=== PATIENT | female | born 1990 | race African-American/Black ===

== ENCOUNTER 2025-01-21 13:56 | Inpatient (IN) | payer MEDICAID, OTHER ==
--- NOTE | 2025-01-21 14:01 | ED ---
Psych HPI - General Stated Complaint: Suicidal Time Seen by Provider: 01/21/25 13:57 Source: RN notes reviewed, old records reviewed Mode of arrival: EMS Limitations: no limitations - History of Present Illness Initial Comments: This is a 34-year-old female to the ER for evaluation. Patient coming in for psychiatric evaluation. Patient currently transitioning, and psychiatric medication but not taking any psychiatric medication currently. Patient is suicidal not homicidal no drugs or alcohol today MD Complaint: suicidal ideation, feels depressed -: days(s) Associated Psychiatric Symptoms: depression, suicidal ideation History of same: Yes Quality: constant, getting worse Improves With: none Worsens With: none Context: not taking psychiatric medications Associated Symptoms: denies other symptoms Treatments Prior to Arrival: placed on mental health hold If Self Harm: admits thoughts of self harm - Related Data Previous Rx's Medication Instructions Recorded ARIPiprazole [Abilify] 15 mg PO DAILY 30 Days #30 tab 01/28/25 Benzocaine/Menthol Lozeng [Cepacol 1 each MUCOUS MEM Q4HR PRN lozenge 01/28/25 lozenge] Folic Acid 1 mg PO DAILY 30 Days #30 tab 01/28/25 Multivitamins, Thera [Multivitamin 1 each PO DAILY 30 Days #30 tab 01/28/25 (formulary)] Nicotine Gum (Polacrilex) 2 mg BUCCAL Q4HR PRN pieceofgum 01/28/25 [Nicorette] Prazosin [Minipress] 1 mg PO HS 30 Days #30 cap 01/28/25 Sertraline [Zoloft] 50 mg PO DAILY 30 Days #30 tab 01/28/25 Thiamine [Vitamin B-1] 100 mg PO DAILY 30 Days #30 tab 01/28/25 traZODone HCL [Desyrel] 50 mg PO HS 30 Days #30 tab 01/28/25 Allergies Allergy/AdvReac Type Severity Reaction Status Date / Time No Known Allergies Allergy Unverified 01/21/25 14:58 Review of Systems ROS Statement: Those systems with pertinent positive or pertinent negative responses have been documented in the HPI. ROS Other: All systems not noted in ROS Statement are negative. General Exam General appearance: alert, in no apparent distress Head exam: Present: atraumatic, normocephalic, normal inspection Eye exam: Present: normal appearance, PERRL, EOMI. Absent: scleral icterus, conjunctival injection, periorbital swelling ENT exam: Present: normal exam, mucous membranes moist Neck exam: Present: normal inspection. Absent: tenderness, meningismus, l ymphadenopathy Respiratory exam: Present: normal lung sounds bilaterally. Absent: respiratory distress, wheezes, rales, rhonchi, stridor Cardiovascular Exam: Present: regular rate, normal rhythm, normal heart sounds. Absent: systolic murmur, diastolic murmur, rubs, gallop, clicks GI/Abdominal exam: Present: soft, normal bowel sounds. Absent: distended, tenderness, guarding, rebound, rigid Extremities exam: Present: normal inspection, full ROM, normal capillary refill. Absent: tenderness, pedal edema, joint swelling, calf tenderness Back exam: Present: normal inspection Neurological exam: Present: alert, oriented X3, CN II-XII intact Psychiatric exam: Present: normal affect, normal mood Skin exam: Present: warm, dry, intact, normal color. Absent: rash Course Vital Signs 01/21/25 13:58 Temperature 98.1 F Pulse Rate 88 Respiratory 18 Rate Blood Pressure 150/85 O2 Sat by Pulse 97 Oximetry - Reevaluation(s) Reevaluation #1: 01/21/25 14:54 Medical records reviewed Reevaluation #2: 01/21/25 14:55 Cleared for psychiatric evaluation Reevaluation #3: Was pt. sent in by a medical professional or institution (, PA, RADIOISOTOPE TECHNOLOGIST, urgent care, hospital, or fci...) When possible be specific @ -no Did you speak to anyone other than the patient for history (EMS, parent, family, police, friend...)? What history was obtained from this source @ -no Did you review nursing and triage notes (agree or disagree)? Why? @ -agree Are old charts reviewed (outside hosp., previous admission, EMS record, old EKG, old radiological studies, urgent care reports/EKG's, fci records)? Report findings @ -yes Differential Diagnosis (chest pain, altered mental status, abdominal pain women, abdominal pain men, vaginal bleeding, weakness, fever, dyspnea, syncope, headache, dizziness, GI bleed, back pain, seizure, CVA, palpatations, mental health, musculoskeletal)? @ -prior EKG interpreted by me (3pts min.). @ -no X-rays interpreted by me (1pt min.). @ -no CT interpreted by me (1pt min.). @ -no U/S interpreted by me (1pt. min.). @ -no What testing was considered but not performed or refused? (CT, X-rays, U/S, labs)? Why? @ -none What meds were considered but not given or refused? Why? @ -none Did you discuss the management of the patient with other professionals (professionals i.e. , PA, RADIOISOTOPE TECHNOLOGIST, lab, RT, psych nurse, social services specialist, trigonometry tutor, teacher, dispatch officer, lead case manager)? Give summary @ -no Was smoking cessation discussed for >3mins.? @ -no Was critical care preformed (if so, how long)? @ -no Were there social determinants of health that impacted care today? How? (Homelessness, low income, unemployed, alcoholism, drug addiction, transportation, low edu. Level, literacy, decrease access to med. care, [place] [facility], rehab)? @ -none Was there de-escalation of care discussed even if they declined (Discuss DNR or withdrawal of care, Hospice)? DNR status @ -no What co-morbidities impacted this encounter? (DM, HTN, Smoking, COPD, CAD, Cancer, CVA, ARF, Chemo, Hep., AIDS, mental health diagnosis, sleep apnea, morbid obesity)? @ -none Was patient admitted / discharged? Hospital course, mention meds given and route, prescriptions, significant lab abnormalities, going to OR and other pertinent info. @ - 34 female will be admitted for psychiatric evaluation and treatment Admitted Undiagnosed new problem with uncertain prognosis? @ -no Drug Therapy requiring intensive monitoring for toxicity (Heparin, Nitro, Insulin, Cardizem)? @ -no Were any procedures done? @ -no Diagnosis/symptom? @ -Depression mental health evaluation Acute, or Chronic, or Acute on Chronic? @ -Acute Uncomplicated (without systemic symptoms) or Complicated (systemic symptoms)? @ -Complicated Side effects of treatment? @ -no Exacerbation, Progression, or Severe Exacerbation? @ -exacerbation Poses a threat to life or bodily function? How? (Chest pain, USA, NE, pneumonia, PE, COPD, DKA, ARF, appy, cholecystitis, CVA, Diverticulitis, Homicidal, Suicidal, threat to staff... and all critical care pts) @ -no Reevaluation #4: Differential Mental Health Depression, anxiety, bipolar, psychosis, schizophrenia, borderline personality, situational depression, adjustment disorder, behavioral disorder, brain tumor, malingering, substance abuse, encephalopathy, medication reaction, dementia, hypothyroidism, degenerative neurologic disorder, lupus.... This is not meant to be all-inclusive list Medical Decision Making - Medical Decision Making 34 female will be admitted for psychiatric evaluation and treatment - Lab Data Result diagrams: 01/24/25 21:35 01/24/25 21:35 Lab Results 01/21/25 Range/Units 18:37 Influenza Type A (PCR) Not Detected (Not Detectd) Influenza Type B (PCR) Not Detected (Not Detectd) RSV (PCR) Not Detected (Not Detectd) SARS-CoV-2 (PCR) Not Detected (Not Detectd) Disposition Clinical Impression: Bipolar disorder with current episode depressed, Alcohol use disorder, Anxiety, Suicidal ideation Disposition: TRANSFER TO PSYCH HOSP/UNIT Condition: Fair Is patient prescribed a controlled substance at d/c from ED?: No
[2025-01-21 19:23] LABS: Influenza A Not Detected (Not Detectd); Influenza B Not Detected (Not Detectd); RSV Not Detected (Not Detectd)
[2025-01-21] MEDS: LORazepam 1 MG TAB PO STA (19:44)
[2025-01-21] MEDS: ACETAMINOPHEN TAB 325 MG TAB PO STA (21:58)
[2025-01-21] MEDS ORDERED: MAG HYDROX/AL HYDROX/SIMETH 355 ML BOTTLE PO PRN (22:10)
[2025-01-21] MEDS ORDERED: HALOPERIDOL LACTATE 5 MG/ML 1 ML VIAL IM PRN (22:10)
[2025-01-21] MEDS ORDERED: LORazepam 2 MG/ML INJ IM PRN (22:10)
[2025-01-21] MEDS: LORazepam 1 MG TAB PO PRN (23:22)
[2025-01-21] MEDS: IBUPROFEN 600 MG TAB PO PRN (23:22)
[2025-01-21] MEDS: haloperidoL 5 MG TAB PO PRN (23:22)
[2025-01-22] MEDS: MULTIVITAMINS, THERA 1 EACH TAB PO SCH (09:26)
[2025-01-22] MEDS: THIAMINE 100 MG TAB PO SCH (09:26)
[2025-01-22] MEDS: NICOTINE 21MG/24HR PATCH TRANSDERM SCH (09:26)
[2025-01-22] MEDS: FOLIC ACID 1 MG TAB PO SCH (09:26)
--- NOTE | 2025-01-22 15:19 | P.HP ---
Psychiatric H&P - . H&P Date: 01/22/25 History & Physical: Allergies Allergy/AdvReac Type Severity Reaction Status Date / Time No Known Allergies Allergy Unverified 01/21/25 14:58 Vital Signs Temp 97.2 F L 01/22/25 11:07 Pulse 100 01/22/25 11:07 Resp 20 01/21/25 23:03 BP 144/97 01/22/25 11:07 Pulse Ox 98 01/22/25 11:07 FiO2 Intake & Output 01/21/25 01/22/25 01/22/25 18:59 06:59 18:59 Weight 99.79 kg 115.575 kg Laboratory Last Values Influenza Type A (PCR) Not Detected (Not Detectd) 01/21/25 18:37 Influenza Type B (PCR) Not Detected (Not Detectd) 01/21/25 18:37 RSV (PCR) Not Detected (Not Detectd) 01/21/25 18:37 SARS-CoV-2 (PCR) Not Detected (Not Detectd) 01/21/25 18:37 01/22/25 15:11 IDENTIFYING DATA: Patient is a 34-year-old individual, living independently, unemployed CHIEF COMPLAINT: SI HPI: Patient presented to the hospital with depression. Per EPS, "Patient was brought in by [facility] related to suicidal ideations with multiple plans. Patient assessed in ER7 from [id number]. Patient refused to answer majority of questions stating "I know there are people in the hallway listening" and "I'm a private person so I cannot discuss that here". Patient verbalizes suicidal ideation with a plan to overdose or crash her car. Patient states that she will find a way because she wants to . Patient irritable during assessment stating "They already asked me all of those questions". Patient states that U already assessed her. Patient denies homicidal ideations. Patient denies auditory or visual hallucinations. Patient verbalizes delusions including feeling like people are calling her humiliating and that she is digusting. Patient verbalizes daily alcohol use including a pint/day with last drink 2 days ago. Patient denies history of withdrawal and denies history of seizures. Patient denies substance use and states she does not smoke." Patient seen and evaluated in their room and was agreeable with speaking to senior technical writer in the room. Patient no tably was sedated, describing several symptoms that appears to be related to withdrawing including feeling dizzy, chills, sweating however UDS has not been completed. Patient verbalizes "delusions" for the past several weeks, great insight into these delusional thoughts described as feeling as though people are following them, humiliating them. Patient was unable to elaborate on any stressors that could have prompted these feelings however does report nonadherence with psychotropic medications. They do report ongoing suicidal ideations with a plan, paranoia however denied any unsafe feelings while in the hospital. Patient denies any homicidal ideations intent or plan. At this time patient denies any auditory or visual hallucinations. Patient denies any flight of ideas racing thoughts and increased in goal directed behavior. Patient admits to using crack cocaine occasionally, nicotine daily, occasional alcohol however previously told EPS worker. Have been drinking a pint per day, denying any cannabis. PAST PSYCHIATRIC HISTORY: Patient has a history of bipolar disorder. Patient denies being on any psychiatric medications. Patient reports 1 previous inpatient hospitalization, last 1 year ago. Patient denies any psychiatric outpatient follow-up. Patient reports 1 previous suicide attempt, remotely. PMH: as per ER note ALLERGIES: as per EMR SUBSTANCE USE HISTORY: As per HPI FAMILY PSYCHIATRIC/SUBSTANCE USE HISTORY: Denies SOCIAL HISTORY: Patient is single and has no children. They claims they live independently, unemployed. MENTAL STATUS EXAM: General Appearance: Patient appears to be stated age is alert, directable, and attempts to cooperate. Patient appears to have poor hygiene and grooming. Behavior: Patient is laying without any agitated behavior. Somnolent Speech: Patient's speech is fluent and nonpressured, brief. Mood/Affect: Patient reports their mood is depressed, affect is congruent and constricted. Suicidality/Homicidality: Patient denies having any homicidal ideation intent or plan. Patient reports suicidal ideations with a plan Perceptions: Patient denies any visual hallucinations and denies any auditory hallucinations Though content/process: There is evidence of paranoid delusions Memory and concentration: AOX3, grossly intact for the purposes of this session. Can spell "WORLD" backwards Judgment and insight: Poor STRENGTHS/WEAKNESSES: strength is that patient is resilient. Weakness is that patient abuses substances, has poor judgment and is impulsive INTELLECT: Average IMPRESSIONS: Bipolar disorder, current episode depressed with psychotic features Rule out substance-induced mood disorder Stimulant use disorder Alcohol use disorder Nicotine dependence PLAN: -Patient is admitted under voluntary status to MHU for stabilization of psychiatric symptoms and safety. Patient has signed adult voluntary form and medication consent and is placed in patient's chart. -Medications : Start Abilify 5 mg at bedtime for bipolar disorder, trazodone 50 mg at bedtime for insomnia -Ativan and Haldol PRN for agitation/aggression -Started thiamine, MVM for etoh use -CIWA protocol with Ativan PRN for ETOH withdrawal. -Patient was counselled on substance abuse and desired to cut back on use-Will offer patient subtance use rehab -Patient was informed of the risks, benefits and side effects of the medication and patient verbally consented to taking the medications. Patient signed med consent form and was placed in chart. -Internal Medicine consult to perform medical evaluation and physical. -NRT -nicotine patch -SW on board for discharge planning. Encourage patient to participate in groups to work on coping skills.
[2025-01-22] MEDS: LORazepam 1 MG TAB PO PRN (18:30)
[2025-01-22] MEDS: NICOTINE GUM (POLACRILEX) 2 MG GUM BUCCAL PRN (20:05)
[2025-01-22] MEDS: guaiFENesin-DM 600/30MG 1 EACH TAB.ER.12H PO PRN (20:17)
[2025-01-22] MEDS: ARIPiprazole 5 MG TAB PO SCH (21:16)
[2025-01-22] MEDS: traZODone HCL 50 MG TAB PO SCH (21:16)
[2025-01-23] MEDS: ACETAMINOPHEN TAB 325 MG TAB PO PRN (04:27)
[2025-01-23] MEDS: BENZOCAINE/MENTHOL LOZENG 1 EACH LOZENGE MUCOUS MEM PRN (10:13)
[2025-01-23] MEDS: SERTRALINE 50 MG TAB PO SCH (10:14)
--- NOTE | 2025-01-23 12:16 | P.PN ---
Progress Note - Text Progress Note Date: 01/23/25 Interval History: Patient was seen wandering the hallways and was directable and agreeable to sp evan with ticket writer in the office. Patient displayed dramatic behavior, requesting to sit on the floor with head between her legs, anxious. Patient expressed waking up "cranky" due to missing breakfast. They report feeling both anxious and angry related to feeling as though the staff does not care about her. She mentions being upset that one of her boyfriends on the unit is being discharged today, stating that there are other boyfriend is still here however. Patient reports sleeping well. She reports suicidal ideations however was able to contract for safety, denying any plan or intent. Patient does report high anxiety, attempted to teach patient breathing coping skills. Patient describes visual hallucinations as shadows. At this time patient denies any homicidal ideations, intent or plan. Patient denies any auditory hallucinations and denies any paranoia or delusions. Patient denies any side effects from the medications and has been compliant with meds. Mental Status Exam: General Appearance: Patient appears to be stated age is alert, directable, and cooperative. Disheveled appearance Behavior: Patient displayed dramatic behavior, plopping themselves on the floor, anxious Speech: Patient's speech is fluent and nonpressured. Mood/Affect: Mood is irritable, affect is congruent and labile. Suicidality/Homicidality: Patient denies having any homicidal ideation intent or plan. She does report suicidal ideations no plan today Perceptions: Patient reports visual hallucinations, denying any auditory hallucinations Though content/process: There is no evidence of any delusional thought content and thought process is linear. Memory and concentration: AOX3, grossly intact for the purposes of this session Judgment and insight: Improving mildly Assessment Bipolar disorder, current episode depressed with psychotic features Rule out substance-induced mood disorder Anxiety, unspecified Stimulant use disorder Alcohol use disorder Nicotine dependence Cluster B traits Plan: -Patient continues to meet criteria for inpatient psychiatric admission for symptom stabilization and safety. Patient has signed adult voluntary form and medication consent and was placed in patient's chart. -Medications: Start Zoloft 50 mg daily for depression/anxiety, increase Abilify to 10 mg at bedtime for bipolar disorder, continue trazodone 50 mg at bedtime for insomnia -When necessary Ativan and Haldol for agitation/aggression. -Labs: Ordered but not completed -NRT -nicotine patch -CIWA protocol with Ativan PRN for ETOH withdrawal. -SW on board for discharge planning. Encouraged the patient to participate in milieu.
[2025-01-23] MEDS: ARIPiprazole 10 MG TAB PO SCH (20:14)
[2025-01-23] MEDS: FLUTICASONE NASAL 50MCG/SPRAY 16GM BTL EA NOSTRIL PRN (20:15)
--- NOTE | 2025-01-24 05:32 | P.MDCNMH ---
History of Present Illness H&P Date: 01/22/25 Patient is a 34-year-old female with history of bipolar disorder who presented for suicidal ideation. Medicine was consulted for medical evaluation. Patient states she has history of HIV diagnosed at age 18. She was previously on HIV therapy and discontinued 1 month ago. She has declined to take any HIV related medication at this time. She is attesting to occasionally fevers and chills during this time. She says she also has cough with some sputum production related to a previous cold, which seems to be improving. She denies chest pain, palpitations, shortness of breath, abdominal pain, nausea, vomiting, dysuria. Patient is afebrile, blood pressure 144/97, pulse 100, O2 saturation 98 % on room air. Viral respiratory panel negative. No imaging to review. Social history: Patient uses alcohol daily, tobacco occasionally, and recreational drugs cocaine and ecstasy Review of systems: Reviewed, pertinent positive negatives as per HPI Gen: In NAD, non-toxic, obese HEENT: normocephalic, atraumatic, hearing acuity is intact, mucous membranes moist CVS: perfusing all extremities well, no pitting edema Respiratory: symmetric chest expansion, no accessory muscle use GI: soft, NTTP, ND : no suprapubic tenderness, no CVA tenderness MSK/Derm: no rashes, cyanosis Neuro: CN II-XII intact, no motor weakness Assessment/plan: # HIV positive Declining treatment, due to mood and SI HIV1 RNA ultra quantitative, and CD4 CD8 flow ordered # Bipolar disorder #Alcohol use disorder -Management per primary psychiatry service Thank you for this consult, please reach out if any further questions/concerns. Past Medical History Past Medical History: Deep Vein Thrombosis (DVT), Pulmonary Embolus (PE) History of Any Multi-Drug Resistant Organisms: None Reported Past Surgical History: Breast Surgery Past Psychological History: Anxiety, Bipolar, Depression, PTSD Smoking Status: Current every day smoker Past Alcohol Use History: Daily Past Drug Use History: Cocaine, Marijuana Medications and Allergies Home Medications Medication Instructions Recorded Confirmed Type No Known Home Medications 01/21/25 01/21/25 History Allergies Allergy/AdvReac Type Severity Reaction Status Date / Time No Known Allergies Allergy Unverified 01/21/25 14:58 Physical Exam Vitals: Vital Signs Temp Pulse Resp BP Pulse Ox 01/22/25 11:07 97.2 F L 100 144/97 98 01/21/25 23:03 98.6 F 91 20 146/95 98 Intake and Output 01/22/25 01/22/25 01/22/25 06:59 14:59 22:59 Other: Weight 115.575 kg Cranial Nerve Examination - Cranial Nerves Cranial Nerve II- Optic: Intact Cranial Nerve III- Oculomotor: Intact Cranial Nerve IV- Trochlear: Intact Cranial Nerve V- Trigeminal: Intact Cranial Nerve - Abducens: Intact Cranial Nerve VII- Facial: Intact Cranial Nerve VIII- Auditory: Intact Cranial Nerve IX- Glossopharyngeal: Intact Cranial Nerve X- Vagus: Intact Cranial Nerve XI- Accessory: Intact Cranial Nerve XII- Hypoglossal: Intact
[2025-01-24] MEDS: ARIPiprazole 15 MG TAB PO SCH (11:53)
--- NOTE | 2025-01-24 12:29 | P.PN ---
Progress Note - Text Progress Note Date: 01/24/25 Interval History: Patient was seen in bed and was directable and agreeable to speak with technical writer in the room. Patient appeared drowsy stating they feel "sick and weak". Unsure if this is related to withdrawing from substances as patient was unable to elaborate further on the symptoms described. Patient did report "on and off" depression however did deny suicidal ideations today. Patient further report a decrease in paranoid delusions however still there described as feeling as though people are humiliating her. Patient does report significant nightmares overnight that is impacting their sleep. Patient otherwise did attend groups yesterday and did participate. CIWAs still elevated at times, patient reports improvement in withdrawal symptoms on Ativan. At this time patient denies any suicidal or homicidal ideations, intent or plan. Patient denies any auditory, visual hallucinations. Patient denies any side effects from the medications and has been compliant with meds. Mental Status Exam: General Appearance: Patient appears to be stated age is alert, directable, and cooperative. Behavior: Patient displays dramatic behavior, anxious appearing at times Speech: Patient's speech is fluent and nonpressured. Mood/Affect: Mood is improving mildly, affect is congruent and labile. Suicidality/Homicidality: Patient denies having any suicidal or homicidal ideation intent or plan. Perceptions: Patient denies any visual hallucinations and denies any auditory hallucinations Though content/process: There is evidence of paranoid delusions however less intense than previous encounter Memory and concentration: AOX3, grossly intact for the purposes of this session Judgment and insight: Improving mildly Assessment Bipolar disorder, current episode depressed with psychotic features Rule out substance-induced mood disorder Anxiety, unspecified Stimulant use disorder Alcohol use disorder Nicotine dependence Cluster B traits Plan: -Patient continues to meet criteria for inpatient psychiatric admission for symptom stabilization and safety. Patient has signed adult voluntary form and medication consent and was placed in patient's chart. -Medications: Increase Abilify to 15 mg daily for bipolar disorder, continue Zoloft 50 mg daily for anxiety/depression, trazodone 50 mg at bedtime for insomnia, start prazosin 1 mg at bedtime for nightmares -When necessary Ativan and Haldol for agitation/aggression. -Labs: Ordered but not completed -NRT -nicotine patch -CIWA protocol with Ativan PRN for ETOH withdrawal. -SW on board for discharge planning. Encouraged the patient to participate in milieu.
[2025-01-24] MEDS: PRAZOSIN 1 MG CAP PO SCH (21:20)
[2025-01-24 22:00] LABS: Basophils % (A) 1 %; Eosinophils # (A) 0.1 k/uL (0-0.7); Eosinophils % (A) 2 %; HCT 45.1 % (34.0-46.0); HGB 14.5 gm/dL (11.4-16.0); Lymphocytes # (A) 1.9 k/uL (1.0-4.8); Lymphocytes % (A) 33 %; MCH 32.4 pg (25.0-35.0); MCHC 32.1 g/dL (31.0-37.0); MCV 100.9 fL (80.0-100.0); Mean Platelet Volume 7.4; Monocytes # (A) 0.4 k/uL (0-1.0); Monocytes % (A) 7 %; Neutrophils # (A) 3.3 k/uL (1.3-7.7); Neutrophils % (A) 55 %; Platelet Count 458 k/uL (150-450); RBC 4.47 m/uL (3.80-5.40); RDW 12.2 % (11.5-15.5)
[2025-01-24 22:20] LABS: ALT 32 U/L (4-34); AST 32 U/L (14-36); African American GFR (CKD) >90 (>60 ml/min/1.73 sqM); Albumin 3.8 g/dL (3.5-5.0); Alkaline Phosphatase 71 U/L (38-126); Anion Gap 9 mmol/L; Blood Urea Nitrogen 12 mg/dL (7-17); Calcium 9.5 mg/dL (8.4-10.2); Carbon Dioxide 22 mmol/L (22-30); Chloride 103 mmol/L (98-107); Glucose 115 mg/dL (74-99); Non-African American GFR(CKD) >90 (>60 ml/min/1.73 sqM); Potassium 4.6 mmol/L (3.5-5.1); Sodium 134 mmol/L (137-145); Total Bilirubin 0.4 mg/dL (0.2-1.3); Total Protein 6.7 g/dL (6.3-8.2)
[2025-01-25] MEDS: LORazepam 1 MG TAB PO PRN (13:41)
--- NOTE | 2025-01-25 13:48 | P.PN ---
Subjective Progress Note Date: 01/25/25 Principal diagnosis: bipolar disorder Interval History: Patient was seen in bed aand was not properly clothed. I did see her along with a nurse and she said she didn't want to get up and talk to me or get dressed she was too tired and just felt too bad. A little later she did get up and come out in the [place] with hospital gown on but still looked tired. At this time patient denies any suicidal or homicidal ideations, intent or plan. Patient denies any auditory, visual hallucinations. Patient denies any side effects from the medications and has been compliant with meds. Mental Status Exam: General Appearance: Patient appears to be stated age is sleepy and uncooperati ve. Behavior: Patient, anxious appearing at times Speech: Patient's speech is fluent and nonpressuredbut not very productive. Mood/Affect: Mood still depressed and she says she still couldn't see any purpose of living. Her affect is congruent and labile. Suicidality/Homicidality: Patient denies having any suicidal or homicidal ideation intent or planjust feels depressed. Perceptions: Patient denies any visual hallucinations and denies any auditory hallucinations Though content/process: There is evidence of paranoid delusions however less intense than previous encounter Memory and concentration: AOX3, grossly intact for the purposes of this session Judgment and insight: Improving mildly Assessment Bipolar disorder, current episode depressed with psychotic features Rule out substance-induced mood disorder Anxiety, unspecified Stimulant use disorder Alcohol use disorder Nicotine dependence Cluster B traits Plan:no change at this time -Patient continues to meet criteria for inpatient psychiatric admission for symptom stabilization and safety. Patient has signed adult voluntary form and medication consent and was placed in patient's chart. -Medications: Increase Abilify to 15 mg daily for bipolar disorder, continue Zoloft 50 mg daily for anxiety/depression, trazodone 50 mg at bedtime for insomnia, start prazosin 1 mg at bedtime for nightmares -When necessary Ativan and Haldol for agitation/aggression. -Labs: Ordered but not completed -NRT -nicotine patch -CIWA protocol with Ativan PRN for ETOH withdrawal. -SW on board for discharge planning. Encouraged the patient to participate in milieu. Objective - Vital Signs Vital signs: Vital Signs Temp 97.3 F L 01/25/25 09:59 Pulse 82 01/25/25 09:59 Resp 20 01/25/25 09:59 BP 117/69 01/25/25 09:59 Pulse Ox 98 01/24/25 20:45 FiO2 - Labs CBC & Chem 7: 01/24/25 21:35 01/24/25 21:35 Labs: Abnormal Lab Results - Last 24 Hours (Table) 01/24/25 01/24/25 Range/Units 21:35 21:35 MCV 100.9 H (80.0-100.0) fL Plt Count 458 H (150-450) k/uL Sodium 134 L (137-145) mmol/L Glucose 115 H (74-99) mg/dL
--- NOTE | 2025-01-26 09:49 | P.PN ---
Subjective Progress Note Date: 01/26/25 Principal diagnosis: bipolar I disorder depressed Interval History: Patient was seen sleeping in the day room. She said she had not slept well last night. She still looked tired. At this time patient denies any suicidal or homicidal ideations, intent or plan. Patient denies any auditory, visual hallucinations. Patient denies any side effects from the medications and has bee n compliant with meds. She said, "if you're not here to talk to me about discharge then we have nothing to talk about." Mental Status Exam:she was sleepy, poor eye contact General Appearance: Patient appears to be stated age is sleepy and uncooperative. Behavior: withdrawn Speech: Patient's speech is fluent and nonpressured, hasbut not very productive. Mood/Affect: Mood still depressed and she says she still couldn't see any purpose of living. Suicidality/Homicidality: Patient denies having any suicidal or homicidal ideation intent or plan,she just feels depressed. Perceptions: Patient denies any visual hallucinations and denies any auditory hallucinations Though content/process: There is evidence of paranoid delusions however less intense than previous encounter Memory and concentration: AOX3, grossly intact for the purposes of this session Judgment and insight: Improving mildly Assessmenthard to assess due to lack of cooperation still seemed pretty depressed Bipolar disorder, current episode depressed with psychotic features Rule out substance-induced mood disorder Anxiety, unspecified Stimulant use disorder Alcohol use disorder Nicotine dependence Cluster B traits Plan:no change at this time -Patient continues to meet criteria for inpatient psychiatric admission for symptom stabilization and safety. Patient has signed adult voluntary form and medication consent and was placed in patient's chart. -Medications: Increase Abilify to 15 mg daily for bipolar disorder, continue Zoloft 50 mg daily for anxiety/depression, trazodone 50 mg at bedtime for insomnia, start prazosin 1 mg at bedtime for nightmares -When necessary Ativan and Haldol for agitation/aggression. -Labs: Ordered but not completed -NRT -nicotine patch -CIWA protocol with Ativan PRN for ETOH withdrawal. -SW on board for discharge planning. Encouraged the patient to participate in milieu. Objective - Vital Signs Vital signs: Vital Signs Temp 97.3 F L 01/25/25 09:59 Pulse 113 H 01/26/25 08:46 Resp 20 01/25/25 09:59 BP 111/63 01/26/25 08:46 Pulse Ox 98 01/24/25 20:45 FiO2 - Labs CBC & Chem 7: 01/24/25 21:35 01/24/25 21:35
[2025-01-26] MEDS: MAGNESIUM HYDROXIDE 2,400 MG/30 ML CUP PO PRN (14:41)
[2025-01-27 10:35] VITALS: RESP 16
--- NOTE | 2025-01-27 13:08 | P.PN ---
Progress Note - Text Progress Note Date: 01/27/25 Interval History: Patient was seen in her room and was directable and agreeable to speak with wr iter in the room. Patient was fixated on discharge, becoming upset with scientific technical writer when told she would not be discharged today. Patient states she has a sick mother that she has to 10 to and that she has an outpatient appointment already set up. Patient did receive as needed medications for agitation afterwards. Patient denied any nightmares, sleep difficulties, depression however did appear to be minimizing her symptoms in order to be discharged. She denied any paranoia and was goal oriented today. Discussed with patient her HIV diagnosis and encouraged her to take her antiretroviral medications and to follow-up with her outpatient provider as she has not been taking these medications recently. At this time patient denies any suicidal or homicidal ideations, intent or plan. Patient denies any auditory, visual hallucinations and denies any paranoia or delusions. Patient denies any side effects from the medications and has been compliant with meds. Mental Status Exam: General Appearance: Patient appears to be stated age is alert, directable, and cooperative. Behavior: Patient is calmly seated without any agitated behavior. Speech: Patient's speech is fluent and nonpressured. Mood/Affect: Mood is irritable, affect is congruent and labile. Suicidality/Homicidality: Patient denies having any suicidal or homicidal ideation intent or plan. Perceptions: Patient denies any visual hallucinations and denies any auditory hallucinations Though content/process: There is no evidence of any delusional thought content and thought process is linear and goal-directed. Memory and concentration: AOX3, grossly intact for the purposes of this session Judgment and insight: Improving mildly Assessment Bipolar disorder, current episode depressed with psychotic features Rule out substance-induced mood disorder Anxiety, unspecified Stimulant use disorder Alcohol use disorder Nicotine dependence Cluster B traits Plan: -Patient continues to meet criteria for inpatient psychiatric admission for symptom stabilization and safety. Patient has signed adult voluntary form and medication consent and was placed in patient's chart. -Medications: Continue Abilify 50 mg daily for bipolar disorder, Zoloft 50 mg daily for anxiety/depression, trazodone 50 mg at bedtime for insomnia, prazosin 1 mg at bedtime for nightmares -When necessary Ativan and Haldol for agitation/aggression. -Labs: Sodium slightly low at 134, MCV increased likely related to alcohol use -NRT -nicotine patch -SW on board for discharge planning. Encouraged the patient to participate in milieu. Anticipate discharge back home alone tomorrow
[2025-01-27] MEDS: MELATONIN 3 MG TABLET PO STA (23:47)
[2025-01-28 09:04] VITALS: BP 132/101; PULSE 110; TEMP 96.4
--- NOTE | 2025-01-28 13:27 | P.DS ---
Providers Date of admission: 01/21/25 22:07 Expected date of discharge: 01/28/25 Attending physician: Sherice Callejas MD Consults: 01/21/25 22:10 Consult Physician Routine Consulting Provider: Jessica Lantigua Consult Reason/Comments: History and Physical, New admission Do you want consulting provider notified?: Yes Primary care physician: Stated None - Discharge Diagnosis(es) (1) Bipolar disorder with current episode depressed Current Visit: Yes Status: Acute Priority: High (2) Anxiety Current Visit: Yes Status: Acute Priority: Medium (3) Stimulant use disorder Current Visit: Yes Status: Acute Priority: High (4) Alcohol use disorder Current Visit: Yes Status: Acute Priority: High (5) Nicotine dependence Current Visit: Yes Status: Acute Priority: Low (6) Cluster B personality disorder Current Visit: Yes Status: Acute Priority: Medium Hospital Course: Admission HPI: Admission note was completed by health science writer "Patient presented to the hospital with depression. Per EPS, "Patient was brought in by [facility] related to suicidal ideations with multiple plans. Patient assessed in ER7 from [id number]. Patient refused to answer majority of questions stating "I know there are people in the hallway listening" and "I'm a private person so I cannot discuss that here". Patient verbalizes suicidal ideation with a plan to overdose or crash her car. Patient states that she will find a way because she wants to . Patient irritable during assessment stating "They already asked me all of those questions". Patient states that U already assessed her. Patient denies homicidal ideations. Patient denies auditory or visual hallucinations. Patient verbalizes delusions including feeling like people are calling her humiliating and that she is digusting. Patient verbalizes daily alcohol use including a pint/day with last drink 2 days ago. Patient denies history of withdrawal and denies history of seizures. Patient denies substance use and states she does not smoke." Patient seen and evaluated in their room and was agreeable with speaking to health science writer in the room. Patient notably was sedated, describing several symptoms that appears to be related to withdrawing including feeling dizzy, chills, sweating however UDS has not been completed. Patient verbalizes "delusions" for the past several weeks, great insight into these delusional thoughts described as feeling as though people are following them, humiliating them. Patient was unable to elaborate on any stressors that could have prompted these feelings however does report nonadherence with psychotropic medications. They do report ongoing suicidal ideations with a plan, paranoia however denied any unsafe feelings while in the hospital. Patient denies any homicidal ideations intent or plan. At this time patient denies any auditory or visual hallucinations. Patient denies any flight of ideas racing thoughts and increased in goal directed behavior. Patient admits to using crack cocaine occasionally, nicotine daily, occasional alcohol however previously told EPS worker. Have been drinking a pint per day, denying any cannabis." Hospital course: Upon admission to the unit patient was directable and agreeable to commence treatment and signed adult voluntary form.. Patient got along well with other patients on the unit and followed unit protocol. Patient was compliant with the medications and denied any side effects throughout hospital course. Patient was started on Abilify and this was increased to 15 mg daily for bipolar disorder, Zoloft 50 mg daily for anxiety/depression, trazodone 50 mg at bedtime for insomnia, prazosin 1 mg at bedtime for nightmares. Patient spoke of her stressors and engaged in therapy both group and individual. Patient was also seen by medical team for history and physical exam. Throughout the course of the hospitalization patient gradually improved with regards to mood, anxiety, sleep and became more future oriented with improved insight and judgment. On the day of discharge patient denied any suicidal or homicidal ideations intent or plan denied any auditory or visual hallucinations. The patient denied any access to guns or weapons. Patient denied any paranoia and did not endorse any delusions. Patient does have a significant history of substance abuse and was counseled on abstaining from all substances including alcohol and marijuana. Patient was offered however declined inpatient substance-abuse rehab. Patient was also counseled on the medications and need for regular compliance and was encouraged to follow-up with their outpatient appointment for mental health and also for primary care. Patient to be discharged back home alone and will follow-up with [facility]. Mental status exam: General Appearance: Patient appears to be stated age is alert, pleasant, and cooperative. Patient is in no acute distress and has fair hygiene and grooming Behavior: Patient is calmly seated without any agitated behavior. Speech: Patient's speech is fluent and nonpressured. Mood/Affect: Patient reports their mood is "good", affect is congruent and euthymic. Suicidality/Homicidality: Patient denies having any suicidal or homicidal ideation intent or plan. Perceptions: Patient denies any auditory or visual hallucinations. Though content/process: There is no evidence of any delusional thought content and thought process is linear and goal-directed. More future oriented Memory and concentration: AOX3, grossly intact for the purposes of this session. Can spell "WORLD" backwards correctly. Judgment and insight: Fair Impression: Bipolar disorder, current episode depressed with psychotic features Rule out substance-induced mood disorder Anxiety, unspecified Stimulant use disorder Alcohol use disorder Nicotine dependence Cluster B traits Plan: -Continue with discharge today as patient has improved and stabilized psychiatrically and is not currently an imminent threat to themself and/or others. Patient will remain at chronically elevated risk for harm to self and/or others due to their impulsivity and substance abuse. -Continue medications: Abilify 15 mg daily, Zoloft 50 mg daily, trazodone 50 mg at bedtime, prazosin 1 mg at bedtime -Patient was counseled on the need for medication compliance and appropriate follow-up at mental health and also primary care for medical issues. Patient verbalized understanding and agreed. -Social work to help coordinate patients discharge today. also to ensure safe home environment that guns/weapons are either removed from the home or locked away. Social work also to arrange for patients follow up appointments with [facility] for psychiatric care along with follow up with primary care provider. -Patient counseled on abstaining from recreational drugs and marijuana and alcohol. Was informed/educated on the adverse effects on their physical and mental health. Patient verbally agreed and understood. Patient was offered substance abuse treatment however declined at this time. -Patient was instructed to return to the hospital or seek immediate medical care if their psychiatric or medical symptoms do worsen or reoccur. Abnormal Labs 01/24/25 01/24/25 21:35 21:35 MCV 100.9 H Plt Count 458 H Sodium 134 L Glucose 115 H Vital Signs Temp 96.4 F L 01/28/25 09:00 Pulse 110 H 01/28/25 09:00 Resp 16 01/27/25 19:51 BP 132/101 01/28/25 09:00 Pulse Ox 98 01/28/25 09:00 FiO2 Allergies Allergy/AdvReac Type Severity Reaction Status Date / Time No Known Allergies Allergy Unverified 01/21/25 14:58 Plan - Discharge Summary Discharge Rx Participant: No New Discharge Prescriptions: New ARIPiprazole [Abilify] 15 mg PO DAILY 30 Days #30 tab traZODone HCL [Desyrel] 50 mg PO HS 30 Days #30 tab Folic Acid 1 mg PO DAILY 30 Days #30 tab Nicotine Gum (Polacrilex) [Nicorette] 2 mg BUCCAL Q4HR PRN pieceofgum PRN Reason: Nicotine Cravings Thiamine [Vitamin B-1] 100 mg PO DAILY 30 Days #30 tab Benzocaine/Menthol Lozeng [Cepacol lozenge] 1 each MUCOUS MEM Q4HR PRN lozenge PRN Reason: Cough Prazosin [Minipress] 1 mg PO HS 30 Days #30 cap Multivitamins, Thera [Multivitamin (formulary)] 1 each PO DAILY 30 Days #30 tab Sertraline [Zoloft] 50 mg PO DAILY 30 Days #30 tab Discharge Medication List ARIPiprazole [Abilify] 15 mg PO DAILY 30 Days #30 tab 01/28/25 [Rx] Benzocaine/Menthol Lozeng [Cepacol lozenge] 1 each MUCOUS MEM Q4HR PRN lozenge 01/28/25 [Rx] Folic Acid 1 mg PO DAILY 30 Days #30 tab 01/28/25 [Rx] Multivitamins, Thera [Multivitamin (formulary)] 1 each PO DAILY 30 Days #30 tab 01/28/25 [Rx] Nicotine Gum (Polacrilex) [Nicorette] 2 mg BUCCAL Q4HR PRN pieceofgum 01/28/25 [Rx] Prazosin [Minipress] 1 mg PO HS 30 Days #30 cap 01/28/25 [Rx] Sertraline [Zoloft] 50 mg PO DAILY 30 Days #30 tab 01/28/25 [Rx] Thiamine [Vitamin B-1] 100 mg PO DAILY 30 Days #30 tab 01/28/25 [Rx] traZODone HCL [Desyrel] 50 mg PO HS 30 Days #30 tab 01/28/25 [Rx] Follow up Appointment(s)/Referral(s): [facility] [Outside] - 02/03/25 3:00 pm (02/03 @ 15:00 Virtual appt pt will get email Monday with invite to online meeting and instructions) [facility] [NON-STAFF] - 1 Week Patient Instructions/Handouts: How to Stop Smoking (DC), Bipolar Disorder (DC), Anxiety (GEN) Activity/Diet/Wound Care/Special Instructions: [facility] Discharge Info Avoid the use of street drugs and alcohol. Take all medications as prescribed. When you are in need of refills on your medications, please contact your outpatient medical provider and/or outpatient psychiatrist. Please go to your scheduled outpatient appointments for aftercare treatment. If symptoms return or become worse, call the crisis line at or and/or visit the nearest emergency room for assistance. National Suicide and Crisis Lifeline - call or text 339 Discharge Disposition: HOME SELF-CARE
== END 2025-01-28 12:55 | disposition home or self-care (01) | DRG 750 ==
LOC: EC 13:56 → 3MHU 22:07
PROVIDERS: ADMIT Psychiatry & Neurology Psychiatry; ATTEND Psychiatry & Neurology Psychiatry
DX: F31.5 Bipolar disorder, current episode depressed, severe, with psychotic features (principal); F41.9 Anxiety disorder, unspecified; F43.10 Post-traumatic stress disorder, unspecified; F60.89 Other specific personality disorders; F15.10 Other stimulant abuse, uncomplicated; F17.200 Nicotine dependence, unspecified, uncomplicated; F10.10 Alcohol abuse, uncomplicated; G47.00 Insomnia, unspecified; R45.851 Suicidal ideations; Z21 Asymptomatic human immunodeficiency virus [HIV] infection status; Z79.899 Other long term (current) drug therapy; Z86.711 Personal history of pulmonary embolism; Z91.51 Personal history of suicidal behavior; Z86.718 Personal history of other venous thrombosis and embolism; R45.1 Restlessness and agitation; Z71.51 Drug abuse counseling and surveillance of drug abuser; Z71.89 Other specified counseling; Z11.52 Encounter for screening for COVID-19; Z28.310 Unvaccinated for COVID-19; Z28.21 Immunization not carried out because of patient refusal; Z53.29 Procedure and treatment not carried out because of patient's decision for other reasons
CPT/HCPCS: 80053; 82075; 85025; 87636; 99285